=== PATIENT | male | born 1955 | race Caucasian/White ===

== ENCOUNTER → 2016-10-21 | Outpatient (CLI) | payer BC ==
[~2016-10-21] MED LIST: CHOL100010 PO; LEVO125T4 PO; MULT-506 PO; TAMS0.4C38 PO
--- NOTE | 2016-10-21 11:33 | DIAGNOSTIC IMAGING REPORT ---
L-SPINE MIN 4 VIEWS ROUTINE CLINICAL HISTORY: Low back pain and lower extremity weakness COMPARISON STUDY: 12/24/2013 FINDINGS: There are 5 lumbar type vertebral bodies present. There are mild multilevel degenerative changes. No acute fractures are visualized. No destructive lesions are evident. There are no subluxations. IMPRESSION: Mild degenerative change. No fractures subluxations or destructive lesions are visualized Electronically signed by: Tomi Silva M.D. 10/21/2016 11:31 AM Dictated Date/Time: 10/21/2016 11:30 AM
[2016-10-21 12:14] LABS: BASO % 0.9 %; BASO ABS # 0.05 K/uL (0-0.2); COMPLETE YES; EOS % 4.2 %; HEMATOCRIT 44.3 % (42-52); LYMPH % 26.8 %; LYMPH ABS # 1.52 K/uL (1.2-3.4); MEAN CELL VOLUME 88.1 fL (80-100); MEAN CORPUSCULAR HEMOGLOBIN 29.6 pg (25-34); MEAN CORPUSCULAR HGB CONC 33.6 g/dl (32-36); MEAN PLATELET VOLUME 10.6 fL (7.4-10.4); MONO % 5.8 %; NEUT % 62.3 %; PLATELET COUNT 172 K/uL (130-400); RED BLOOD COUNT 5.03 M/uL (4.7-6.1); WHITE BLOOD COUNT 5.67 K/uL (4.8-10.8)
[2016-10-21 12:51] LABS: ALT/SGPT 26 U/L (12-78); AST/SGOT 11 U/L (15-37); BLOOD UREA NITROGEN 17 mg/dl (7-18); BUN/CREATININE RATIO 17.5 (10-20); CALCIUM 8.8 mg/dl (8.5-10.1); CARBON DIOXIDE 27 mmol/L (21-32); CHLORIDE 108 mmol/L (98-107); CHOLESTEROL 171 mg/dl (0-200); CREATININE 0.96 mg/dl (0.60-1.40); GLUCOSE 100 mg/dl (70-99); MAGNESIUM 2.1 mg/dl (1.8-2.4); POTASSIUM 4.1 mmol/L (3.5-5.1); SODIUM 142 mmol/L (136-145); URIC ACID 5.3 mg/dl (2.6-7.2)
[2016-10-21 12:58] LABS: ALB/GLOB RATIO 1.2 (0.9-2); ALKALINE PHOSPHATASE 61 U/L (45-117); C-REACTIVE PROTEIN < 0.29 mg/dl (0-0.29); CHOLESTEROL/HDL RATIO 3.7; FERRITIN 51.1 ng/ml (8.0-388.0); HDL CHOLESTEROL 46 mg/dl; LDL CHOLESTEROL CALCULATED 105 mg/dl; RHEUMATOID FACTOR < 10.0 U/mL (0-15); TRIGLYCERIDES 98 mg/dl (0-150); VERY LOW DENSITY LIPOPROT CALC 20 mg/dl
[2016-10-21 15:27] LABS: LYME DISEASE AB IGG NEG (NEG); LYME DISEASE AB IGM NEG (NEG)
--- NOTE | 2016-10-26 13:19 | CODING QUERY MEDICAL NECESSITY ---
SUPPORTING DIAGNOSIS NEEDED A supporting diagnosis is required for the test/procedure performed on this patient in order for us to be reimbursed by the patient's insurance. Please provide a supporting diagnosis for the following test/procedure listed below next to the test name along with your signature. *If there is no additional diagnosis for this patient that would support the following test/procedure please document that below next to the test/procedure. Test(s)/Procedure(s) that require a supporting diagnosis: DOS 10/21 * Vitamin B12 DIAGNOSIS: Provider Signature: Date: Thank you Annelise Montesinos Health Information Management Once completed, please kindly fax back to [phone] For questions please call [phone]
== END | disposition home or self-care (01) ==
LOC: C.LAB 10:39
PROVIDERS: ATTEND Family Medicine
DX: M54.5 Low back pain (principal); R29.898 Other symptoms and signs involving the musculoskeletal system; F32.9 Major depressive disorder, single episode, unspecified; E03.9 Hypothyroidism, unspecified; F41.9 Anxiety disorder, unspecified; Z13.220 Encounter for screening for lipoid disorders; E55.9 Vitamin D deficiency, unspecified; R89.4 Abnormal immunological findings in specimens from other organs, systems and tissues; M25.561 Pain in right knee; M25.562 Pain in left knee; R25.2 Cramp and spasm; M79.606 Pain in leg, unspecified

== ENCOUNTER → 2016-12-21 | Outpatient (CLI) | payer BC ==
[~2016-12-21] MED LIST changes: +BISA-16 PO; +ERGO500037 PO; -LEVO125T4 PO; +LEVO125T5 PO; +NAPR-998 PO; +TADA10TA PO
[2016-12-21 15:00] LABS: PROSTATE SPECIFIC ANTIGEN 4.89 ng/ml (0.000-4.000); THYROID STIMULATING HORMONE 0.021 uIu/ml (0.300-4.500)
== END | disposition home or self-care (01) ==
LOC: C.LAB 12:51
PROVIDERS: ATTEND Family Medicine
DX: R97.20 Elevated prostate specific antigen [PSA] (principal); E03.9 Hypothyroidism, unspecified

== ENCOUNTER → 2017-03-02 | Outpatient (CLI) | payer BC ==
[~2017-03-02] MED LIST changes: -BISA-16 PO; -ERGO500037 PO; +LEVO125T4 PO; -LEVO125T5 PO; -NAPR-998 PO; -TADA10TA PO
--- NOTE | 2017-03-02 12:40 | DIAGNOSTIC IMAGING REPORT ---
TWO VIEW CHEST CLINICAL HISTORY: Acute bronchitis. FINDINGS: PA and lateral chest radiographs are compared to study dated 10/17/2014. Correlation is made with chest CT dated 06/21/2011. The heart is enlarged and there is atherosclerotic calcification of the thoracic aorta. The pulmonary vasculature is noncongested. Bibasilar atelectasis is observed. No airspace consolidation or pleural effusion is identified. There is no pneumothorax. The bony thorax appears intact. Degenerative change is seen throughout the thoracic spine. IMPRESSION: Cardiomegaly with no active disease in the chest. Electronically signed by: Dk Gregg M.D. 03/02/2017 12:38 PM Dictated Date/Time: 03/02/2017 12:36 PM
[2017-03-02 13:10] LABS: BASO % 0.6 %; BASO ABS # 0.05 K/uL (0-0.2); COMPLETE YES; HEMATOCRIT 45.1 % (42-52); IG% 0.1 %; LYMPH % 27.5 %; LYMPH ABS # 2.21 K/uL (1.2-3.4); MEAN CELL VOLUME 86.7 fL (80-100); MEAN CORPUSCULAR HEMOGLOBIN 28.1 pg (25-34); MEAN CORPUSCULAR HGB CONC 32.4 g/dl (32-36); MEAN PLATELET VOLUME 10.1 fL (7.4-10.4); MONO % 5.6 %; NEUT % 60.2 %; PLATELET COUNT 170 K/uL (130-400); WHITE BLOOD COUNT 8.03 K/uL (4.8-10.8)
== END | disposition home or self-care (01) ==
LOC: C.RAD 12:15
PROVIDERS: ATTEND Nurse Practitioner
DX: J20.9 Acute bronchitis, unspecified (principal); E03.9 Hypothyroidism, unspecified; I51.7 Cardiomegaly

== ENCOUNTER 2017-08-18 11:17 | Inpatient (IN) | payer BC, OTHER ==
--- NOTE | 2017-07-26 15:01 | PAT Medication Instructions ---
Service Date Jul 26, 2017. Current Home Medication List Bisacodyl (Dulcolax), 1 TAB PO Q2D Ergocalciferol (Vitamin D 33701 Unit), 50,000 UNIT PO WK Levothyroxine Sodium (Levothyroxine Sodium), 125 MCG PO QAM Naproxen Sodium-Diphenhydramin (Aleve Pm 220-25 mg), 2-3 TAB PO HS PRN for RN Tadalafil (Cialis), 5 MG PO QAM Medication Instructions For Your Scheduled Surgery - Check with surgeon for instruction: Naproxen Sodium-Diphenhydramin (Aleve Pm 220-25 mg), 2-3 TAB PO HS PRN for RN - Hold the following medications 2 weeks prior to surgery: Ergocalciferol (Vitamin D 20021 Unit), 50,000 UNIT PO WK (continue as directed) - Hold the following medications the morning of surgery: Bisacodyl (Dulcolax), 1 TAB PO Q2D - Take the following medications the morning of surgery with a sip of water: Levothyroxine Sodium (Levothyroxine Sodium), 125 MCG PO QAM Tadalafil (Cialis), 5 MG PO QAM If you have any questions please call us at [phone] or [phone] or [phone]
[2017-07-26 15:45] LABS: BASO ABS # 0.07 K/uL (0-0.2); COMPLETE YES; EOS % 4.4 %; HEMATOCRIT 44.4 % (42-52); IG% 0.3 %; LYMPH % 27.1 %; LYMPH ABS # 1.86 K/uL (1.2-3.4); MEAN CELL VOLUME 89.3 fL (80-100); MEAN CORPUSCULAR HEMOGLOBIN 30.2 pg (25-34); MEAN CORPUSCULAR HGB CONC 33.8 g/dl (32-36); MEAN PLATELET VOLUME 9.7 fL (7.4-10.4); MONO % 6.1 %; NEUT % 61.1 %; PLATELET COUNT 176 K/uL (130-400); RED BLOOD COUNT 4.97 M/uL (4.7-6.1); WHITE BLOOD COUNT 6.86 K/uL (4.8-10.8)
[2017-07-26 15:45] LABS: MANUAL MICROSCOPIC REQUIRED? NO; REVIEW REQ? NO; URINE APPEARANCE CLEAR (CLEAR); URINE BILIRUBIN NEG (NEG); URINE COLOR YELLOW; URINE NITRITE NEG (NEG); URINE SPECIFIC GRAVITY 1.018 (1.000-1.030); UROBILINOGEN NEG (NEG)
[2017-07-26 15:53] LABS: INR 0.9 (0.9-1.1); PROTHROMBIN TIME (PATIENT) 10.1 SECONDS (9.0-12.0)
[2017-07-26 16:55] LABS: BUN/CREATININE RATIO 15.6 (10-20); CALCIUM 8.8 mg/dl (8.5-10.1); CREATININE 0.92 mg/dl (0.60-1.40); POTASSIUM 4.6 mmol/L (3.5-5.1)
--- NOTE | 2017-08-17 07:38 | HISTORY & PHYSICAL EXAMINATION ---
DATE OF ADMISSION: 08/18/2017 CHIEF COMPLAINT: Primary osteoarthritis of the left knee. HISTORY OF PRESENT ILLNESS: Elias is a very pleasant 62-year-old male who has been complaining of chronic left knee pain. X-rays and clinical examination have been diagnostic for primary osteoarthritis of the left knee. After failing extensive conservative treatment including multiple injections, he has elected to proceed with a left total knee arthroplasty. PAST MEDICAL HISTORY: Significant for hypothyroidism. PAST SURGICAL HISTORY: Significant for tonsillectomy, hernia repair and prostate surgery. ALLERGIES: None. MEDICATIONS: Include Synthroid, vitamin D. FAMILY HISTORY: Significant for stroke and diabetes. SOCIAL HISTORY: He is , rarely drinks. Remains active. REVIEW OF SYSTEMS: He complains of left knee pain. All other pertinent review of systems are negative. PHYSICAL EXAMINATION: GENERAL: He is awake, alert and oriented x3. He is in no apparent distress. He is very pleasant. HEAD, EYES, EARS, NOSE, AND THROAT: Pupils are equal, round and reactive to light. Extraocular motions are intact. Oral mucosa is pink and moist. HEART: Regular rate per radial pulse. LUNGS: Chely symmetrically bilaterally with no audible breath sounds. ABDOMEN: Soft, nontender, nondistended. MUSCULOSKELETAL: On physical examination of the knee, he has range of motion from about 5-120 degrees. He has crepitus throughout range of motion. He has pain over the distal medial femoral condyle and along the medial joint line. He has a trace effusion on exam. He walks without assistive device. IMPRESSION: Primary osteoarthritis of the left knee. PLAN: Will proceed with a left total knee arthroplasty. Postoperatively, he will be started on aspirin for DVT prophylaxis. We will be kept in the hospital then for 2 midnights for postoperative medical management.
[~2017-08-18] VITALS: Ht 167.6 cm; Wt 86.2 kg
[2017-08-18] VITALS (7 sets, daily range): BP systolic 121–143; BP diastolic 72–83; PULSE 56–70; TEMP 36.3–36.9; O2SAT 92–98; Ht 167.6 cm; Wt 86.2 kg
[2017-08-18] MEDS: TRANEXAMIC ACID INJ 1,000 MG in SYRINGE 0 ML IV SCH ×2 (06:30→13:05)
[~2017-08-18 11:17] MED LIST changes: +ACETAMINOPHEN 500 MG TAB PO SCH; +ATROPINE SULFATE 0.1 MG/ML 5ML SYR IV PRN; +BISA-16 PO; +BUPIVACAINE 0.25% 30 ML VIAL ONE; +BUPIVACAINE 0.5 % 5 MG/1 ML PF 10ML VIAL ONE; +CEFAZOLIN 2000MG IV PUSH 10 ML IV SCH; -CHOL100010 PO; +ERGO500037 PO; +EpHEDrine SULFATE INJ 50 MG/ML AMP IV PRN; +FAMOTIDINE 20 MG TAB PO SCH; +FENTANYL CITRATE INJ 50 MCG/1 ML 2 ML VIAL IV PRN; +GABAPENTIN 300 MG CAP PO SCH; +HYDROmorphone INJ 1 MG/ML SYR IV PRN; +LACTATED RINGER'S 1000ML 1,000 ML IV SCH; +LACTATED RINGER'S 1000ML 500 ML IV ONE; +LACTATED RINGER'S 1000ML IV SCH; -LEVO125T4 PO; +LEVO125T5 PO; -MULT-506 PO; +NAPR-998 PO; +ONDANSETRON INJ 2 MG/ML 2 ML VIAL IV PRN; +PROMETHAZINE HCL INJ 12.5 MG in SODIUM CHLORIDE 0.9% 50ML 50 ML IV PRN; +ROPIVACAINE 5MG/ML 30 ML 150 MG, BUPIVACAINE 0.5% MPF INJ 30 ML, EpINEphrine HCL INJ 0.... INFIL SCH; +TADA10TA PO; -TAMS0.4C38 PO
[2017-08-18] MEDS ORDERED: FENTANYL CITRATE INJ 50 MCG/1 ML 2 ML VIAL ONE (11:31)
[2017-08-18] MEDS ORDERED: MIDAZOLAM HCL 1 MG/ML 2ML VIAL ONE ×2 (11:31)
[2017-08-18] MEDS ORDERED: flonase nasal spray NAE (12:09)
--- NOTE | 2017-08-18 12:14 | History & Physical Bridge Note ---
H&P Re-Evaluation Bridge Note: I have examined the patient, reviewed the History & Physical and in the interval since the performance of the History & Physical I have noted the following changes of clinical significance: No changes noted
[2017-08-18] MEDS ORDERED: ORTHO JOINT ANESTHETIC ONE (12:23)
[2017-08-18] MEDS ORDERED: BACITRACIN 50000 UNIT VIAL ONE (12:23)
[2017-08-18] MEDS ORDERED: PROPOFOL IV EMULSION 10 MG/ML 20 ML VIAL IV ONE (14:26)
--- NOTE | 2017-08-18 15:17 | [facility] Post Operative Brief Note ---
Immediate Operative Summary Operative Date Aug 18, 2017. Pre-Operative Diagnosis Osteoarthritis Left Knee Post-Operative Diagnosis Osteoarthritis Left Knee Procedure(s) Performed Left Total Knee Arthroplasty, Cemented Surgeon Dr. Shaq hCou Director Of Market Intelligence Surgeon(s) Dmitriy Hinojosa PA-C Estimated Blood Loss 10cc Findings as above Specimens Permanent Solution: A. Left Knee Bone and Tissue Complication(s) None Disposition Recovery Room / PACU
[2017-08-18] MEDS ORDERED: METOCLOPRAMIDE HCL INJ 5 MG/ML 2 ML VIAL IV PRN (15:30)
[2017-08-18] MEDS ORDERED: ONDANSETRON INJ 2 MG/ML 2 ML VIAL IV PRN (15:30)
[2017-08-18] MEDS ORDERED: MoRPHine SULFATE 2 MG/ML CARP IV PRN (15:30)
--- NOTE | 2017-08-18 15:54 | OPERATIVE REPORT ---
DATE OF OPERATION: 08/18/2017 PREOPERATIVE DIAGNOSIS: Primary osteoarthritis of the left knee. POSTOPERATIVE DIAGNOSIS: Same. PROCEDURE: Left total knee arthroplasty. SURGEON: Dr. Shaq Prather. DECORATIVE ENGRAVER APPRENTICE: Dmitriy Hinojosa PA-C, whose assistance was necessary for retraction and closure. ANESTHESIA: Spinal with a left adductor nerve block. COMPLICATIONS: None. CONDITION: Stable to PACU. IMPLANTS USED: I used a [employer] Vanguard left total knee arthroplasty system with a size 65 femur, a 71 tibia, a size 14 posterior stabilized poly and a 34 patella. All complements were cemented with Palacos-G cement. INDICATIONS: Elias is a pleasant 62-year-old male, whom I have been treating for several years my office with osteoarthritis of his knee. We have done years with injections and he has elected to proceed with a left total knee arthroplasty. DESCRIPTION OF PROCEDURE: On 08/18/2017, he arrived at [facility] for the above procedure. He was seen in the preoperative holding area and the operative extremity was identified and signed. He was given preoperative antibiotics, a spinal anesthetic and a left adductor nerve block. He was then taken back to the operating room, laid on the table in supine position and put under basic sedation. The left knee was then prepped and draped in sterile fashion. Time-out was done and the patient's operative extremity was properly identified. An incision was made directly over the patella. Dissection was taken down to the extensor mechanism and a medial parapatellar arthrotomy was used. The fat pad was left intact. The medial retinaculum was released and the knee was flexed. The ACL, PCL and meniscus were removed. A drill was sent down the center of the femoral canal, followed by an intramedullary lisa. Off that lisa, a distal femoral cutting block was placed and 12 mm was resected off the distal femur at 5 degrees of valgus. A posterior referencing guide was used to measure the size of the distal femur and it measured to be a size 65. Two drill holes were placed in 3 degrees of external rotation. A 4-in-1 cutting block was impacted into place. Anterior, posterior and chamfer cuts were then made. The box cutting guide was then impacted into place and the box was resected for the posterior stabilizing component. The proximal tibia was then exposed. A drill was sent down the center of the tibial canal followed by an intramedullary lisa. Off the lisa, a proximal tibial resection guide was placed and 2 mm was resected off the low medial side. The tibia was then measured to be a size 71. It was set in the appropriate rotation, drilled and then punched. The posterior aspect of the knee was opened up and any additional soft tissue remnants and osteophytes were removed from the back of the knee. Trial components were then placed. The knee was brought through a full range of motion and felt to be stable. The patella was then everted and 9 mm was resected off the posterior aspect of the patella. The patella measured to be a size 34 and 3 peg hole drills were placed. A trial patella was placed and the knee was once again brought through a full range of motion and felt to be stable. Trial components were then removed. The joint was then irrigated. Femoral tibial, and patellar components were then cemented in place with Palacos-G cement. Once cement had hardened, several different polyethylene trials were used and a size 14 posterior stabilized bearing seemed to be the best fit. The final size 14 bearing was then snapped into place and the anterior bar was locked. The knee was brought through a full range of motion and felt to be stable. The surrounding soft tissues were then injected with 100 mL of an orthopedic pain control cocktail. The wound was then irrigated with 3 liters of normal saline solution with bacitracin. Two drains were placed. The extensor mechanism was then closed with #2 FiberWire suture in the superior medial aspect and then #1 Vicryl both proximally and distally. The skin was closed with 2-0 Vicryl, 3-0 V-Loc suture and leon. He was then placed in a soft compressive dressing and taken to the postanesthesia care unit in stable condition. He tolerated the procedure well. I attest to the content of the Intraoperative Record and any orders documented therein. Any exception s are noted below.
--- NOTE | 2017-08-18 16:07 | Anesthesiology Progress Note ---
Anesthesia Post Op Note Date & Time Aug 18, 2017 at 16:07 Vital Signs Pain Intensity: 0 Vital Signs Past 12 Hours Date Time Temp Pulse Resp B/P (MAP) Pulse Ox O2 Delivery O2 Flow Rate FiO2 08/18/17 16:00 36.7 54 15 08/18/17 16:00 55 15 93 08/18/17 15:56 109/70 08/18/17 15:55 56 17 95 08/18/17 15:55 57 17 08/18/17 15:51 105/68 08/18/17 15:50 57 13 95 08/18/17 15:50 61 13 08/18/17 15:46 114/66 08/18/17 15:45 60 13 93 08/18/17 15:45 59 13 08/18/17 15:41 109/62 08/18/17 15:40 71 11 95 08/18/17 15:40 63 11 08/18/17 15:39 101/66 08/18/17 15:35 36.7 68 14 101/66 97 Room Air 08/18/17 11:30 36.9 62 18 143/83 98 Room Air Notes Mental Status: alert / awake / arousable, participated in evaluation Pt Amnestic to Procedure: Yes Nausea / Vomiting: adequately controlled Pain: adequately controlled Airway Patency, RR, SpO2: stable & adequate BP & HR: stable & adequate Hydration State: stable & adequate Neuraxial Anesthesia: was administered, sensory block is resolving Anesthetic Complications: no major complications apparent
--- NOTE | 2017-08-18 16:07 | Discharge Instructions ---
Discharge Instructions Date of Service Aug 18, 2017. Admission Reason for Admission: Left Knee Degenerative Joint Disease Discharge Discharge Diagnosis / Problem: Left Total Knee Discharge Goals Goal(s): Decrease discomfort, Improve function Activity Recommendations Activity Limitations: as noted below . Instructions / Follow-Up Instructions / Follow-Up Activity and Therapy Recommendations: * If you are using [facility] then Physical Therapy will be provided until they feel you are ready to start Outpatient Physical Therapy. If you are not using a Home Health agency then Outpatient Physical Therapy should start about 3-5 days from your day of surgery. Therapy will last about 6-10 weeks * It is important not to put a pillow under your knee when you are relaxing or sleeping. It is just as important to make sure you are getting your knee perfectly straight as it is to regain your knee bend. * You were shown a series of exercises in the hospital. Do these exercises three times each day including the exercises you were shown in physical therapy. * Get up and walk several times each day. For the first four weeks, try not to stand or walk for more than one hour at a time. If you do stand or walk for more than one hour, you will not hurt anything, but your leg will likely swell. * As you feel comfortable, you may change from the walker or crutches to a cane and then to independent walking. Medications: * Narcotic You will likely be sent home from the hospital with a prescription for the narcotic pain medication that worked best throughout your stay. * Aspirin Most patients will be required to take Aspirin 325mg twice a day for 6 weeks after surgery. This is obtained [id number] and a prescription is not necessary. * Other medications may be prescribed for specific circumstances. If you have any questions, please call the office at . * Resume previous home medications unless otherwise instructed TEDs/Elastic Stockings: The white elastic stockings help limit swelling and prevent blood clots from forming in your legs.~ The more you wear them, the more they work. Wear them for six weeks. Showering: You may shower 5 days from the day of surgery. Let the soapy shower water run over the leon. Do not scrub or soak the incision. Things To Watch For: * Drainage from the incision site that occurs more than one week after your surgery. * Increased redness at the incision site. * Fever above 102 degrees Fahrenheit. * Unusual chest pain or shortness of breath. * Call [facility] at with any of the above problems Follow-Up Visit: Follow-up with Dr. Prather 2 weeks after your day of surgery. An appointment was probably scheduled when you signed-up for surgery in the office. If you have any questions call Office Instructions: More detailed instructions as well as Frequently Asked Questions were provided in a folder by our office when you signed-up for surgery. Please review these instructions when you get home. If you have any further questions or concerns, please feel free to call the office at [phone] Current Hospital Diet Patient's current hospital diet: Regular Diet Discharge Diet Recommended Diet: Regular Diet Procedures Procedures Performed: Left Total Knee Arthroplasty, Cemented Pending Studies Studies pending at discharge: no Medical Emergencies . Who to Call and When: Medical Emergencies: If at any time you feel your situation is an emergency, please call 911 immediately. . Non-Emergent Contact Non-Emergency issues call your: Surgeon Call Non-Emergent contact if: wound has increased drainage, wound has increased redness . "Provider Documentation" section prepared by Shaq Prather. . VTE Core Measure Inpt VTE Proph given/why not?: Other Anticoagulation (Aspirin 325 twice a day for 6 weeks)
--- NOTE | 2017-08-18 16:19 | DIAGNOSTIC IMAGING REPORT ---
L KNEE 1 OR 2 VIEWS ROUTINE CLINICAL HISTORY: Degenerative arthritis. Postoperative study COMPARISON: 06/19/2017 DISCUSSION: There are postsurgical changes of a total left knee arthroplasty and patellar resurfacing. The femoral and tibial components appear well seated. Overlying skin leon and surgical drains are evident. Air within the soft tissues is consistent with recent surgery. IMPRESSION: Postsurgical changes of a total left knee arthroplasty. Electronically signed by: Tomi Silva M.D. 08/18/2017 4:17 PM Dictated Date/Time: 08/18/2017 4:16 PM
[2017-08-18] MEDS ORDERED: BISACODYL 5 MG TABEC PO SCH (17:00)
[2017-08-18] MEDS: SODIUM CHLORIDE 0.9% 1000ML 1,000 ML IV SCH (17:33)
[2017-08-18] MEDS: KETOROLAC TROMETHAMINE 30 MG/ML VIAL IV. SCH ×2 (17:37→22:48)
[2017-08-18] MEDS: CEFAZOLIN IV 2,000 MG in SYRINGE 0 ML IV SCH (19:53)
[2017-08-18] MEDS: ACETAMINOPHEN IV 1,000 MG in EMPTY BAG 0 ML IV SCH (19:54)
[2017-08-18] MEDS: ASPIRIN 325 MG ECTAB PO SCH (21:29)
[2017-08-18] MEDS: OXYCODONE HCL IR 5 MG TAB (IMMEDIATE RELEASE) PO PRN (23:26)
[2017-08-19] MEDS: SODIUM CHLORIDE 0.9% 1000ML 1,000 ML IV SCH ×2 (02:28→11:44)
[2017-08-19 03:24] VITALS: BP 101/60; PULSE 61; TEMP 36.5; O2SAT 92
[2017-08-19] MEDS: CEFAZOLIN IV 2,000 MG in SYRINGE 0 ML IV SCH (03:52)
[2017-08-19] MEDS: ACETAMINOPHEN IV 1,000 MG in EMPTY BAG 0 ML IV SCH ×3 (03:53→20:17)
[2017-08-19] MEDS: LEVOTHYROXINE 125 MCG TAB PO SCH (05:20)
[2017-08-19] MEDS: KETOROLAC TROMETHAMINE 30 MG/ML VIAL IV. SCH ×4 (05:20→22:36)
[2017-08-19 06:05] LABS: HEMATOCRIT 35.9 % (42-52); MEAN CELL VOLUME 87.8 fL (80-100); MEAN CORPUSCULAR HEMOGLOBIN 29.6 pg (25-34); MEAN CORPUSCULAR HGB CONC 33.7 g/dl (32-36); MEAN PLATELET VOLUME 9.8 fL (7.4-10.4); PLATELET COUNT 147 K/uL (130-400); RED BLOOD COUNT 4.09 M/uL (4.7-6.1); WHITE BLOOD COUNT 12.24 K/uL (4.8-10.8)
[2017-08-19 06:37] LABS: BUN/CREATININE RATIO 18.5 (10-20); CALCIUM 8.4 mg/dl (8.5-10.1); CREATININE 0.84 mg/dl (0.60-1.40); POTASSIUM 3.7 mmol/L (3.5-5.1)
[2017-08-19] MEDS: MULTIVITAMIN TAB PO SCH (07:40)
[2017-08-19] MEDS: ASPIRIN 325 MG ECTAB PO SCH ×2 (07:40→20:34)
--- NOTE | 2017-08-19 08:07 | PROGRESS NOTE ---
DATE: 08/19/2017 CHIEF COMPLAINT: Status post left total knee arthroplasty, postop day #1. PROGRESS: Elias was seen and examined at bedside today. Overall, he is doing fairly well. He really has no pain in his knee. He is already able to do a straight leg raise. He has been up and ambulating to the bathroom without any problems. He has no complaints. PHYSICAL EXAMINATION: LEFT LEG: The dressing is clean and dry. He can actively do a straight leg raise. He is able to dorsiflex his ankle, but is unable to pull it up on the fibular side. It is not a complete foot drop, but he does not quite have the full dorsiflexion that he has on the contralateral side. LABORATORY DATA: Show an H&H today of 12.1 and 35.9. His glucose is 104. His vital signs are all stable on room air and he is voiding on his own. X-rays postoperatively of the left knee showed the prosthesis to be in an anatomic alignment without any evidence of fracture, dislocation or loosening. IMPRESSION: Status post left total knee arthroplasty, postop day #1. PLAN: At this point, he is doing fairly well. He will be seen by physical therapy today for range of motion and ambulation. We will continue with oxycodone for pain control and aspirin for DVT prophylaxis. We will get a little bit more time for his nerves to fully recover. The spinal could still be lingering some or there could be a little bit of a stretch on the nerve. It is not a complete foot drop, but we will watch it closely. I discussed that with him at bedside. I will see him tomorrow and tomorrow we will change the dressing, pull the drain and likely discharge him to home.
[2017-08-19 08:16] VITALS: BP 142/78; PULSE 68; TEMP 36.7; O2SAT 94
[2017-08-19 11:57] VITALS: BP 122/73; PULSE 79; TEMP 36.8; O2SAT 95
[2017-08-19 14:57] VITALS: BP 118/67; PULSE 82; TEMP 36.8; O2SAT 92
[2017-08-19 23:15] VITALS: BP 117/65; PULSE 75; TEMP 36.7; O2SAT 92
[2017-08-19] MEDS: OXYCODONE HCL IR 5 MG TAB (IMMEDIATE RELEASE) PO PRN (23:19)
[2017-08-20] MEDS: ACETAMINOPHEN IV 1,000 MG in EMPTY BAG 0 ML IV SCH ×2 (03:58→10:44)
[2017-08-20] MEDS: KETOROLAC TROMETHAMINE 30 MG/ML VIAL IV. SCH ×2 (05:44→10:41)
[2017-08-20] MEDS: LEVOTHYROXINE 125 MCG TAB PO SCH (05:45)
[2017-08-20 07:02] VITALS: BP 130/80; PULSE 76; TEMP 36.7; O2SAT 94
[2017-08-20] MEDS: ASPIRIN 325 MG ECTAB PO SCH (07:41)
[2017-08-20] MEDS: MULTIVITAMIN TAB PO SCH (07:56)
[2017-08-20] MEDS ORDERED: BISACODYL 5 MG TABEC PO SCH (08:00)
[2017-08-20] MEDS ORDERED: ASPEC325 PO (08:57)
[2017-08-20] MEDS ORDERED: RXC5 PO (08:57)
--- NOTE | 2017-08-20 09:18 | PROGRESS NOTE ---
DATE: 08/20/2017 CHIEF COMPLAINT: Status post left total knee arthroplasty, postop day #2. PROGRESS: Elias was seen and examined at bedside today. Overall, he is doing very well. He really has no pain in the knee. He has been ambulating well with physical therapy and has been going up and down stairs. He has no other complaints. PHYSICAL EXAMINATION: LEFT KNEE: He is lying with his knee in full extension. The dressing has been changed. The drain has been pulled. He has full active dorsiflexion and plantarflexion of his left ankle. Sensation is intact. IMPRESSION: Status post left total knee arthroplasty, postop day #2. PLAN: At this point, he is doing very well and happy with his progress. He is on aspirin for DVT prophylaxis. We will send him home later this morning on oral pain medications.
--- NOTE | 2017-08-20 09:56 | DISCHARGE SUMMARY ---
DISCHARGE DIAGNOSIS: Primary osteoarthritis of the left knee. PROCEDURE: Left total knee arthroplasty on 08/18/[address] Shaq Prather. DISCHARGE INSTRUCTIONS: 1. Aspirin 325 mg twice a day for 6 weeks. 2. LIANET hose stockings for 6 weeks. 3. Oxycodone 5-10 mg every 4 hours as needed for pain. 4. Start physical therapy this week. 5. Follow up with Dr. Prather in 2 weeks. 6. Call the office of Dr. Prather with any questions or concerns. 7. Synthroid 125 mcg daily. 8. Flonase nasal spray as needed. HOSPITAL COURSE: Elias is a pleasant 62-year-old male who presented to my office with complaints of chronic left knee pain. X-rays and clinical examination were diagnostic for primary osteoarthritis of the left knee. After failing years of conservative treatment, he elected to proceed with a left total knee arthroplasty. On 08/18/2017, he arrived at [facility] and underwent a left knee replacement without complication. He had a spinal anesthetic and a left adductor nerve block. Postoperatively, he was placed in a soft compressive dressing, started on aspirin for DVT prophylaxis and discharged to general orthopedic floor. His hospital course was uneventful. On postop day #1, his H&H was stable at 12.1 and 35.9. He was able to participate well with physical therapy and his pain was well controlled. On postop day #2, the dressing was changed, the drain was pulled. He continued to work well with physical therapy and he was having a very little pain. He was subsequently discharged to home with the above instructions.
[2017-08-20 10:46] VITALS: BP 130/80; PULSE 76; TEMP 36.7; O2SAT 94
[2017-08-20] MEDS: OXYCODONE HCL IR 5 MG TAB (IMMEDIATE RELEASE) PO PRN (11:44)
== END 2017-08-20 12:00 | disposition home health service (06) | DRG 470 ==
LOC: C.ACU 11:17 → C.3E 12:10 → ENRESERV 15:48
PROVIDERS: ADMIT Orthopaedic Surgery; ATTEND Orthopaedic Surgery
PROC: 0SRD0J9 Replacement of Left Knee Joint with Synthetic Substitute, Cemented, Open Approach (ICD-10-PCS; principal; 2017-08-18 13:30)
DX: M17.12 Unilateral primary osteoarthritis, left knee (principal); E03.9 Hypothyroidism, unspecified; N40.0 Benign prostatic hyperplasia without lower urinary tract symptoms; E66.9 Obesity, unspecified; Z68.30 Body mass index [BMI] 30.0-30.9, adult; Z82.3 Family history of stroke; Z83.3 Family history of diabetes mellitus

== ENCOUNTER → 2017-12-25 | Outpatient (CLI) | payer BC, OTHER ==
[~2017-12-25] MED LIST changes: -ACETAMINOPHEN 500 MG TAB PO SCH; +ASPEC325 PO; -ATROPINE SULFATE 0.1 MG/ML 5ML SYR IV PRN; -BUPIVACAINE 0.25% 30 ML VIAL ONE; -BUPIVACAINE 0.5 % 5 MG/1 ML PF 10ML VIAL ONE; -CEFAZOLIN 2000MG IV PUSH 10 ML IV SCH; -EpHEDrine SULFATE INJ 50 MG/ML AMP IV PRN; -FAMOTIDINE 20 MG TAB PO SCH; -FENTANYL CITRATE INJ 50 MCG/1 ML 2 ML VIAL IV PRN; -GABAPENTIN 300 MG CAP PO SCH; -HYDROmorphone INJ 1 MG/ML SYR IV PRN; -LACTATED RINGER'S 1000ML 1,000 ML IV SCH; -LACTATED RINGER'S 1000ML 500 ML IV ONE; -LACTATED RINGER'S 1000ML IV SCH; -ONDANSETRON INJ 2 MG/ML 2 ML VIAL IV PRN; -PROMETHAZINE HCL INJ 12.5 MG in SODIUM CHLORIDE 0.9% 50ML 50 ML IV PRN; -ROPIVACAINE 5MG/ML 30 ML 150 MG, BUPIVACAINE 0.5% MPF INJ 30 ML, EpINEphrine HCL INJ 0.... INFIL SCH; +RXC5 PO; +flonase nasal spray NAE
== END | disposition home or self-care (01) ==
LOC: C.LABBFT 08:55
PROVIDERS: ATTEND Urology
DX: N40.1 Benign prostatic hyperplasia with lower urinary tract symptoms (principal)

== ENCOUNTER 2023-12-08 05:13 | Observation (INO) ==
--- NOTE | 2023-11-01 13:59 | PAT Medication Instructions ---
Medication Instructions Date of Service November 01, 2023 Home Medications cholecalciferol (vitamin D3) 1,250 mcg (50,000 unit) capsule 50,000 unit PO UD levothyroxine 150 mcg tablet (Synthroid) 150 mcg PO QAM DO NOT take the morning of surgery cholecalciferol (vitamin D3) 1,250 mcg (50,000 unit) capsule 50,000 unit PO UD Take morning of surgery With a small sip of water, OTHERWISE NOTHING TO EAT OR DRINK AFTER MIDNIGHT: levothyroxine 150 mcg tablet (Synthroid) 150 mcg PO QAM Other Notes If you have any questions please call us at [phone] or [phone] or [phone] or [phone]
--- NOTE | 2023-11-08 11:36 | Anesthesiology Consultation ---
Date of Service November 08, 2023 Assessment & Plan (1) Encounter for pre-operative examination: - Infectious disease screening: Per assessment on 11/08/23: No known infectious disease contacts or current infectious disease symptoms. No noted recent Covid positive test result. - Outpatient joint assessment: Pt currently scheduled for inpatient pathway. If surgeon requests review for outpatient joint pathway, patient is not recommended candidate for outpatient joint program from anesthesia standpoint based on available information. - S/P Left TKA (08/18/17): SAB L3-L4, 2 attempts + regional, [facility] Chart Review Chart Review: Acceptable Risk for Surgery and Patient seen in Pre Admission Testing Teaching & Discussion Pre-Anesthesia Teaching/Discussion Notes: Instructed NPO after midnight before surgery,except medications with 15 cc of water. Medication instructions provided according to the PAT guidelines. History Surgery Operation Date: 12/08/23 10:00 Proposed Procedures p Right Total Hip Arthroplasty Uncemt Anterior - Shaq Prather, DO Height/Weight Height: 5 ft 7 in Weight: 84.5 kg Allergies Allergy/AdvReac Type Severity Reaction Status Date / Time hydrocodone AdvReac Unknown Headache Verified 11/08/23 15:25 Medications Home Medications Medication Instructions Recorded Confirmed Last Taken cholecalciferol (vitamin D3) 1,250 50,000 unit PO UD 10/26/23 10/26/23 Unknown mcg (50,000 unit) capsule levothyroxine 150 mcg tablet 150 mcg PO QAM 10/26/23 10/26/23 Unknown (Synthroid) sulfamethoxazole 800 1 tab PO BID #14 tabs 11/03/23 Unknown mg-trimethoprim 160 mg tablet (Bactrim DS) Past Medical History Medical History Anxiety Benign prostatic hyperplasia with lower urinary tract symptoms Chronic prostatitis Depression History of COVID-19 05/2022 (home test), resolved Hypothyroidism Taking levothyroxine, most recent TSH 06/06/23 WNL Post traumatic stress disorder (PTSD) R/t of son Pulmonary embolism ~2015 (s/p accident)- treated with anticoagulants, no current issues Sleep apnea No current device Exercise / Class Metabolic Activity II 4-5 Yardwork/Stairs/Walk up hill Past Family History Family History Father Prostate cancer Diabetes Cancer Uncle Hodgkin lymphoma Other No family history of adverse response to anesthesia Denies family history of Ovarian cancer Myocardial infarction Breast cancer Colorectal cancer Past Surgical History Surgical History Family history of reaction to anesthesia Son (1984 age 6)- heart stopped during hernia repair, was told this was reaction to atropine H/O hemorrhoidectomy H/O hernia repair inguinal hernia repair H/O total knee replacement Left TKA (08/18/17): SAB L3-L4, 2 attempts + regional, [facility] History of colonoscopy Past Anesthesia History No Hx of Anesthesia Complications * Son (1984 age 6)- heart stopped during hernia repair, was told this was reaction to atropine History of PONV No Hx of PONV and No Hx of Motion Sickness Social History Smoking Status: Never smoker Do You Dip or Chew Tobacco: No Hx Alcohol Use: No (Hx heavy ETOH use- quit 2020) substance use type: former substance user (hx antidepressant/anxiety medication abuse, ~ 2020/no recent abuse reported) Review of Systems Patient denies chest pain, shortness of breath, dyspnea on exertion, fever, chills, cough, wheezing, palpitations. Physical Exam Vital Signs BP 119/71 P 78 TEMP 98.6 SP02 95%RA RESP 16 Physical Full cervical extension range of motion. Full TMJ range of motion. TMD > 3.5 finger breaths Mallampati Score 3 Dentition: intact Lungs: clear throughout to auscultation Cardiac: regular rate and rhythm, no murmurs noted Spine: normal Carotid arteries: negative bruit Extremities: no LE edema Lab Results Anesthesia Preop Results Results Anesthesia Widget: WBC 5.26 K/ul (4.8-10.8) 11/08/23 Hgb 14.7 g/dl (14.0-18.0) 11/08/23 Hct 45.1 % (42.0-52.0) 11/08/23 Plt 184 K/uL (130-400) 11/08/23 Na 137 mmol/L (136-145) 11/08/23 K 4.4 mmol/L (3.5-5.1) 11/08/23 Cl 105 mmol/L (98-107) 11/08/23 CO2 27 mmol/L (21-32) 11/08/23 BUN 21 mg/dl (6-23) 11/08/23 Creat 1.01 mg/dl (0.6-1.4) 11/08/23 Glucose Level 130 mg/dl (70-99(Fasting)) H 11/08/23 PT 10.9 Seconds (9.0-12.0) 11/08/23 PTT 29 Seconds (21-31) 11/08/23 INR 1.0 (0.9-1.1) 11/08/23 Blood Type A Positive 11/08/23 Antibody Screen NEGATIVE 11/08/23 Testing Electrocardiogram Date: 05/24/23 SB at 59bpm. "Otherwise normal ECG" Chest X-Ray Date: 05/24/23 FINDINGS: Lung volumes are normal. There is no consolidation to suggest pneu monia. Minimal bibasilar densities favor atelectasis. There is no pneumothorax or pleural effusion. Cardiac size is stable. Mediastinal contours are normal. There is no evidence for pulmonary edema. IMPRESSION: No acute cardiopulmonary findings. Stress Test Date: 09/23/20 Exercise METS 10 MPHR 97% Negative for ischemia EF 60% Mild cLVH No evidence of wall motion abnormalities LA mildly dilated Trace to mild aortic valve insufficiency
[2023-12-08] MEDS: ACETAMINOPHEN 500 MG TAB PO SCH ×2 (06:02→14:31)
[2023-12-08] MEDS: dexAMETHasone**PF** 10 MG/ML VIAL IV SCH (06:02)
[2023-12-08] MEDS: LR 500ML BOLUS, THEN 15ML/HR IV SCH (06:03)
[2023-12-08] MEDS: GABAPENTIN 300 MG CAP PO SCH (06:03)
[2023-12-08] MEDS: LR 60ML/HR IV SCH (06:03)
[2023-12-08] MEDS: FAMOTIDINE 20 MG TAB PO SCH (06:03)
[2023-12-08] MEDS ORDERED: BUPIVACAINE 0.5 % 5 MG/1 ML PF 10ML VIAL ONE (06:16)
--- NOTE | 2023-12-08 06:18 | History & Physical Bridge Note ---
Date of Service December 08, 2023 History & Physical Bridge Note I have examined the patient, reviewed the History & Physical and in the interval since the performance of the History & Physical I have noted the following changes of clinical significance: no changes noted
[2023-12-08] MEDS ORDERED: ONDANSETRON INJ 2 MG/ML 2 ML VIAL IV PRN ×2 (06:34→09:38)
[2023-12-08] MEDS ORDERED: fentaNYL citrate PF 100 MCG/2 ML VIAL ONE (06:34)
[2023-12-08] MEDS ORDERED: MIDAZOLAM HCL 1 MG/ML 2ML VIAL ONE (06:34)
[2023-12-08] MEDS ORDERED: fentaNYL citrate PF 100 MCG/2 ML VIAL IV PRN (06:34)
[2023-12-08] MEDS ORDERED: ATROPINE SULFATE 0.1 MG/ML 10ML SYR IV PRN (06:34)
[2023-12-08] MEDS ORDERED: ePHEDrine sulfate 50 MG/ML AMP IV PRN (06:34)
[2023-12-08] MEDS: TRANEXAMIC ACID 1,000 MG **IV Pre-op IV SCH (06:38)
[2023-12-08] MEDS: ceFAZolin 2000MG 2,000 MG/15 ML SYR IV SCH ×2 (07:00→18:27)
[2023-12-08] MEDS ORDERED: PROPOFOL IV EMULSION 10 MG/ML 20 ML VIAL IV ONE (07:17)
[2023-12-08] MEDS ORDERED: ONDANSETRON INJ 2 MG/ML 2 ML VIAL ONE (07:17)
[2023-12-08] MEDS ORDERED: ePHEDrine sulfate 50 MG/5 ML SYR ONE (07:33)
[2023-12-08] MEDS: TRANEXAMIC ACID 1,000 MG **IV Intra-op IV SCH (07:51)
[2023-12-08] MEDS ORDERED: PHENYLEPHRINE HCL 10 MG/ML VIAL ONE (07:52)
--- NOTE | 2023-12-08 07:59 | Operative Report ---
PG Post Operative Report Pre & Post Diagnosis Operation Date: 12/08/23 07:00 Pre-Op Diagnosis: Degenerative Joint Disease Right Hip Post-Op Diagnosis: Degenerative Joint Disease Right Hip I identified the patient and participated in the time-out.: Yes Procedure Operation Date: 12/08/23 07:00 Actual Procedures p Right Anterior Total Hip Arthroplasty(Right) - Shaq Prather DO Surgeon Shaq Prather DO Bookbinder Chief Shaq Quinonez PA-C Estimated Blood Loss 200 Findings Consistent with Post-Op Diagnosis Specimens Right femoral head Description of Procedure Implants used I used a ZimmerBiomet total hip arthroplasty system with a size 5 standard offset Avenir Complete stem, a 54 mm G7 cup with a 25mm screw, an E1 polyet hylene liner, a 40 mm ceramic head with a 0 neck. Elias arrived at the hospital for the above procedure. He was seen in the preoperative holding area and the operative extremity was identified and signed. He was given a spinal anesthetic, a preoperative antibiotic, and TXA. He was then taken back to the operating room and laid on the table in the supine position. He was given basic sedation. The operative leg was secured to a Puristst leg positioner. The hip was then prepped and draped in sterile fashion. A timeout was done and the patient and the operative extremity was properly identified. An anterior approach was used. Dissection was taken down through the fascia and the tensor muscle belly was retracted laterally and the rectus was retracted medially. The circumflex vessels were identified and ligated. The capsule was then incised and tagged for later repair. The femoral neck was then cut and the femoral head was removed. The acetabulum was exposed. Time was spent doing a complete circumferential labral release. Sequential reaming of the acetabulum up to a size 53 reamer was done. Final reamings were done under fluoroscopy to ensure appropriate version. A Biomet 54 mm G7 cup was then impacted into place. A single 25 mm screw was placed. The E1 polyethylene liner was then snapped into place. Surrounding soft tissues were then injected with 100 cc of an o rthopedic pain control cocktail. The proximal femur was then exposed. Sequential broaching up to a size 5 broach was done. Off that broach a size 40 head with a 0 neck was trialed. The hip was reduced and fluoroscopic images showed anatomic alignment of the implants in acceptable length. The broach was removed. The final size 5 standard offset Avenir Complete stem was then impacted into place. A ceramic 40 mm head with a 0 neck was then impacted onto the stem and the hip was reduced. Final fluoroscopic images showed anatomic alignment of the hip. The capsule was then closed with #1 Vicryl suture. A dilute betadyne lavage was then done for 3 minutes. The joint was then irrigated with normal saline solution. The fascia was closed with #1 PDS suture. Skin was closed with 2-0 Vicryl, leon, and a Silverlon dressing. He was then transferred to a hospital bed and taken to the post anesthesia care unit in stable condition. He tolerated the procedure well. Shaq Quinonez PA-C, was present for the entire procedure. He was critical for patient positioning, prepping, draping, retraction exposure, wound closure and application of sterile dressing. I attest to the content of the Intraoperative Record and any orders documented therein. Any exceptions are noted below.
[2023-12-08] MEDS: ORTHO JOINT ANESTHETIC ONE (08:02)
[2023-12-08] MEDS: ROPIV 0.5% 246mg, Ketorolac 30mg, EPINEPHrine 0.5mg in NSS INFIL SCH (08:02)
--- NOTE | 2023-12-08 08:07 | Fluoroscopy Report ---
FL hip RT 1V CLINICAL HISTORY: RIGHT ANTERIOR HIP COMPARISON STUDY: None. FLUOROSCOPY TIME: 10 seconds. FLUOROSCOPY IMAGES: 1 Ka,r: 1.1 mGy FINDINGS: There is a right total arthroplasty. The hardware is intact. No fracture or dislocation. IMPRESSION: Fluoroscopic assistance as above. ACT 112: Negative or not required by law. Electronically signed by: Homer Loredo M.D. 12/08/2023 8:05 AM
--- NOTE | 2023-12-08 09:02 | XRay Report ---
AP PELVIS, CROSSTABLE LATERAL RIGHT HIP History: Right total hip arthroplasty. Degenerative arthritis. Postop. FINDINGS: The patient is status post a right total hip arthroplasty. The hardware is intact. No fract ure or dislocation. Skin leon are in place. IMPRESSION: Right total hip arthroplasty. No evidence for hardware complication ACT 112: Negative or not required by law. Electronically signed by: Homer Loredo M.D. 12/08/2023 9:01 AM
[2023-12-08] MEDS ORDERED: oxyCODONE HCL IR 5 MG TAB (IMMEDIATE RELEASE) PO PRN (09:38)
[2023-12-08] MEDS ORDERED: bisacodyL 10 MG SUPP PR PRN (09:38)
[2023-12-08] MEDS ORDERED: MAGNESIUM HYDROXIDE SUSP 30 ML UDC PO PRN (09:38)
[2023-12-08] MEDS ORDERED: METOCLOPRAMIDE HCL INJ 5 MG/ML 2 ML VIAL IV PRN (09:38)
[2023-12-08] MEDS ORDERED: HYDROmorphone INJ 0.5 MG/0.5 ML SYR IV PRN (09:38)
[2023-12-08] MEDS ORDERED: NALOXONE HCL 0.4 MG/1 ML VIAL/CARP IV PRN (09:38)
[2023-12-08] MEDS: SODIUM CHLORIDE 0.9% 1,000 ML IV SCH (10:13)
[2023-12-08] MEDS: DOCUSATE SODIUM 100 MG CAP PO SCH (10:13)
[2023-12-08] MEDS: MULTIVITAMIN TAB PO SCH (10:13)
[2023-12-08] MEDS: ASPIRIN 81 MG ECTAB PO SCH (10:14)
[2023-12-08] MEDS: KETOROLAC TROMETHAMINE 15 MG/ML VIAL IV SCH (10:16)
--- NOTE | 2023-12-08 12:07 | Anesthesiology Progress Note ---
Date of Service December 08, 2023 Anesthesia Post Procedure Vital Signs Vital Signs: Temp Pulse Pulse Resp BP BP Pulse Ox 12/08/23 11:51 63 18 120/68 95 12/08/23 11:03 97.3 F L 75 128/75 94 12/08/23 10:00 97.3 F L 68 16 122/70 93 12/08/23 09:25 97.5 F L 62 16 120/66 93 12/08/23 09:10 63 18 119/62 93 12/08/23 09:00 59 L 13 105/62 97 12/08/23 08:50 97.3 F L 59 L 16 104/62 98 12/08/23 08:40 66 16 113/62 96 12/08/23 08:30 59 L 13 111/60 100 12/08/23 08:21 97.9 F 62 10 L 104/57 L 97 12/08/23 05:40 97.9 F 70 18 142/79 H 94 O2 Del Method O2 Flow Rate 12/08/23 11:51 Room Air 12/08/23 11:03 Room Air 12/08/23 10:00 Room Air 12/08/23 09:25 Room Air 12/08/23 09:10 Room Air 12/08/23 09:00 Room Air 12/08/23 08:50 Oxymask 2 12/08/23 08:40 Oxymask 2 12/08/23 08:30 Oxymask 7 12/08/23 08:21 Oxymask 7 12/08/23 05:40 Room Air Transfer of Care Handoff Completed per policy Notes Mental Status: alert / awake / arousable and participated in evaluation Patient Amnestic to Procedure: Yes Nausea / Vomiting: adequately controlled Pain: adequately controlled Airway Patency, RR, SpO2: stable & adequate BP & HR: stable & adequate Hydration State: stable & adequate Neuraxial Anesthesia: was administered and sensory block is resolving Anesthetic Complications: no major complications apparent and Pt Satisfied with anesthetic care
[2023-12-08] MEDS: SENNA 8.6 MG TAB PO SCH (20:32)
[2023-12-09] MEDS: LEVOTHYROXINE SODIUM 150 MCG TABLET PO SCH (05:25)
[2023-12-09] MEDS: dexAMETHasone 4 MG TAB PO SCH (07:55)
[2023-12-09] MEDS: TAMSULOSIN HCL 0.4 MG CAP PO SCH (08:14)
--- NOTE | 2023-12-09 11:37 | Orthopedic Progress Note ---
Date of Service December 09, 2023 Assessment & Plan (1) Status post right hip replacement: Overall he is doing very well. Is not having much pain in the right hip. He will be seen by physical therapy today for ambulation and range of motion exercises. He he is on aspirin for DVT prophylaxis. He can be discharged home later today. He will follow-up orthopedics in 2 weeks. Anamika Griffin was seen and examined at bedside this morning. Overall is doing very well. Is not having much pain in the right hip. Has been up and ambulating to the bathroom. Has no complaints.. Review of Systems All systems reviewed & are unremarkable except as noted in HPI & below. Physical Exam On physical examination of the right hip, the dressing is clean and dry. His leg is out in full extension. He has active dorsiflexion plantarflexion of his right ankle.. Results & Data Results & Data Laboratory Results . Diagnostic Findings Postoperative x-rays of the right hip show the prosthesis to be in anatomic ali gnment without any evidence of fracture complication, or loosening.. PG Care Time/CCT Total # of Minutes Spent Total Time Spent with Patient: Total time spent is greater than 50% in coordination of care (as documented) at patient's floor/unit and/or counseling patient: Coding Level of Care Code 61586 Post Operative Follow-Up Diagnoses Status post right hip replacement Z96.641
--- NOTE | 2023-12-09 11:38 | Discharge Summary ---
Date of Service December 09, 2023 Principal Diagnosis Same as "Discharge Diagnosis" noted below under Discharge Instructions. Discharge Exam On physical examination of the right hip, the dressing is clean and dry. His leg is out in full extension. He has active dorsiflexion plantarflexion of his right ankle.. Discharge Data Procedures Performed Operation Date: 12/08/23 07:00 Actual Procedures p Right Anterior Total Hip Arthroplasty(Right) - Shaq Prather DO Ordered Studies 12/08/23 07:00 FL hip RT 1V Routine Hospital Course (1) Status post right hip replacement: On December 08, 2023 Elias arrived at [facility] and underwent a right hip replacement without complication. He had a spinal anesthetic. Postoperatively he was started on aspirin for DVT prophylaxis and transferred to the general orthopedic floors. His hospital course was uneventful. On postop day #1, the vital signs were stable and the pain was well-controlled. He was able to participate well with physical therapy doing ambulation and range of motion exercises. He was then discharged home. He will follow-up orthopedics in 2 weeks. PG Care Time/CCT Total # of Minutes Spent Total Time Spent with Patient: Total time spent is greater than 50% in coordination of care (as documented) at patient's floor/unit and/or counseling patient: Discharge Plan Discharge Items Patient Disposition: Home - Self-Care Reason For Visit: Degenerative Joint Disease Right Hip Discharge Diagnosis: Right hip replacement Activity: As commented below Non-emergency contact: Surgeon Call non-emergency contact if: your wound has increased redness and your wound has increased drainage Follow-up/Referrals: Sayda Alfaro MD [Primary Care Provider] - Diet: Regular Addtl Attending Provider Instructions: Activity and Therapy Recommendations: * If you are using [facility] then therapy will be provided at your home until they feel you have accomplished all of your goals. * If you are using [facility] then Physical Therapy will be provided until they feel you are ready to start Outpatient Physical Therapy. * If you are not using home therapy then Outpatient Physical Therapy should start about 3-5 days from your day of surgery. Therapy will last about 6-10 weeks * You were shown a series of exercises in the hospital. Do these exercises three times each day including the exercises you were shown in physical therapy. * Get up and walk several times each day.~ For the first four weeks, try not to stand or walk for more than one hour at a time. If you do stand or walk for more than one hour, you will not hurt anything, but your leg will likely swell.~~ * As you feel comfortable, you may change from the walker or crutches to a cane and~then to independent walking. Medications: * Narcotic You will likely be sent home from the hospital with a prescription for the narcotic pain medication that worked best throughout your stay. * Cefadroxil -take the antibiotic twice a day for 10 days to help prevent infection. * Aspirin Most patients will be required to take Aspirin 81mg twice a day for 6 weeks after surgery. This is obtained [id number] and a prescription is not necessary. * Other medications may be prescribed for specific circumstances. If you have any questions, please call the office at . * Resume previous home medications unless otherwise instructed TEDs/Elastic Stockings: The white elastic stockings help limit swelling and prevent blood clots from forming in your legs. The more you wear them, the more they work. Wear them for six weeks. Dressing Care: Leave the Silverlon dressing in place for 7 days. After 7 days you may remove the dressing. If the incision is not draining then you may leave the leon open to air. If there is a little bit of drainage or if the leon are getting stuck on your clothing then cover the incision with a dry dressing. The leon will be removed at your 2 week follow-up appointment. Showering: You may shower with the Silverlon dressing in place. Do not let the shower spray hit the dressing directly. Pat the Silverlon dressing dry. If the dressing becomes wet underneath, then simply remove the dressing. Keep the incision dry until you are 7 days out from the day of surgery. After 7 days you may remove the Silverlon dressing and shower with the leon exposed. Let soapy water run over the leon and pat them dry. Do not scrub or soak the incision. Things To Watch For: * Drainage from the incision site that occurs more than one week after your surgery. * Increased redness at the incision site. * Fever above 102 degrees Fahrenheit. * Unusual chest pain or shortness of breath. * Call [facility] at with any of the above problems Follow-Up Visit: Follow-up with Dr. Prather's PA (Shaq Quinonez) 2-3 weeks after your day of surgery. He will remove your leon and answer any questions. If you have any additional questions or concerns, Dr Prather is usually in the office at the same time and will be available An appointment was probably scheduled when you signed-up for surgery in the office. If you have any questions call Office Instructions: More detailed instructions as well as Frequently Asked Questions were provided in a folder by our office when you signed-up for surgery. Please review these instructions when you get home. If you have any further questions or concerns, please feel free to call the office at [phone] Pending Studies at Discharge: No Stand-Alone Forms: My [facility], Pain - Opioid Pain Management, Smoking Cessation Medications and DC Order Prescriptions: New aspirin 81 mg Tablet,Delayed Release (Dr/Ec) 81 mg PO BID 42 Days Qty: 0 0RF oxycodone 5 mg Tablet 5 mg PO Q4H PRN (Reason: pain) Qty: 30 0RF cefadroxil 500 mg capsule 500 mg PO BID 10 Days Qty: 20 0RF Continued cholecalciferol (vitamin D3) 1,250 mcg (50,000 unit) capsule 50,000 unit PO UD Qty: 12 0RF Rx Instructions: 50,000 units orally once weekly; levothyroxine [Synthroid] 150 mcg tablet 150 mcg PO QAM alfuzosin [Uroxatral] 10 mg tablet extended release 24 hr 10 mg PO DAILY Rx Instructions: administer after the same meal each day Discharge Orders: Discharge Order (Routine); Ordered 12/09/23 Ordered By: Shaq Main/Other Patient Handouts: DVT Post Op Prevention Admission Data Admit Date/Time: 12/08/23 08:22 Attending Provider: Shaq Prather Admit Provider: Shaq Prather Primary Care Provider: Sayda Alfaro Other Interventions: Discharge Summary Assessment (RN) Last Done: 12/09/23 10:15
== END 2023-12-09 11:15 | disposition home or self-care (01) ==
LOC: ASU 05:13 → 3E 05:13